=== PATIENT | female | born 2000 | race Two or more races ===

== ENCOUNTER 2023-08-26 04:39 | Inpatient (IN) | payer BC, OTHER ==
[~2023-08-26] VITALS: Ht 157.5 cm; Wt 65.8 kg
[2023-08-26] MEDS ORDERED: LACT. RINGERS/OXYTOCIN 20UNITS 1,000 ML IV ONE (05:23)
[2023-08-26] MEDS ORDERED: ACETAMINOPHEN 325 MG TAB PO PRN (06:15)
[2023-08-26] MEDS ORDERED: PHISODERM TOP SOLN 240ML BTL TOP PRN (06:15)
[2023-08-26] MEDS ORDERED: WITCH HAZEL-GLYCERIN PAD TOP PRN (06:15)
[2023-08-26] MEDS ORDERED: LACT. RINGERS/OXYTOCIN 20UNITS 500 ML IV ONE ×2 (06:15→06:45)
[2023-08-26] MEDS ORDERED: DERMOPLAST 60ML BOTTLE TOP PRN (06:15)
[2023-08-26 06:59] LABS: Urine Bacteria NONE SEEN /hpf (None Seen); Urine Blood Negative /uL (Negative); Urine Budding Yeast MODERATE /hpf (None Seen); Urine Clarity CLOUDY (Clear); Urine Color Yellow (Yellow); Urine Protein, UAD Negative (Negative); Urine Specific Gravity 1.019 (1.001-1.035); Urine Urobilinogen Normal (Negative); Urine WBC 9 /hpf (0 - 5); Urine WBC Clumps PRESENT /hpf (None Seen)
[2023-08-26 07:16] LABS: Basophils # (auto) 0 10 ^3/uL (0-0.2); Basophils % (auto) 0.1 % (0.0-2.0); Eosinophils # (auto) 0 10 ^3/uL (0-0.8); Eosinophils % (auto) 0.1 % (0.0-7.0); Hematocrit 36.8 % (36.0-46.0); Hemoglobin 12.2 g/dL (12.2-16.2); Lymphocytes # (auto) 1.1 10 ^3/uL (0.4-5.4); Mean Corpuscular Hemoglobin 30.7 pg (28.0-32.0); Mean Corpuscular Hgb Conc. 33.2 g/dL (32.0-36.0); Mean Corpuscular Volume 92.4 fL (80.0-100.0); Monocytes # (auto) 0.8 10 ^3/uL (0-1.3); Monocytes % (auto) 4.9 % (0.0-12.0); Neutrophils # (auto) 14.4 10 ^3/uL (1.6-8.6); Neutrophils % (auto) 87.9 % (37.0-80.0); Red Blood Cells 3.98 10^6/uL (4.0-5.20); Red Cell Distribution Width 12.6 % (11.8-14.3); White Blood Cell 16.4 10^3/uL (4.4-10.8)
[2023-08-26] MEDS ORDERED: LACTATED RINGER'S 1,000 ML IV SCH (07:30)
[2023-08-26 07:34] LABS: INR 0.89 (0.9-1.15); Prothrombin Time 9.4 sec (9.3-11.8)
[2023-08-26 08:22] LABS: Amphetamine Screen, Urine Neg (NEGATIVE)
[2023-08-26 08:23] LABS: Benzodiazephine Screen, Urine Neg (NEGATIVE)
[2023-08-26 08:24] LABS: Barbiturate Scree,Urine Neg (NEGATIVE); Cocaine Screen, Urine Neg (NEGATIVE); Opiate Scree,Urine Neg (NEGATIVE)
[2023-08-26 08:25] LABS: Cannabinoid Screen, Urine Neg (NEGATIVE); Phencyclidine Screen, Urine Neg (NEGATIVE)
[2023-08-26 08:49] LABS: Alanine Aminotransferase 15 U/L (7-40); Alkaline Phosphatase 76 U/L (46-116); Anion Gap 9 (5-15); BUN/Creatinine Ratio 15.6 (10.0-20.0); Blood Urea Nitrogen 7 mg/dL (9-23); Calcium 8.7 mg/dL (8.7-10.4); Carbon Dioxide 21 mmol/L (20-30); Chloride 106 mmol/L (98-107); Glucose 94 mg/dL (74-106); Potassium 3.7 mmol/L (3.5-5.1); Sodium 136 mmol/L (136-145)
[2023-08-26 08:50] LABS: Albumin 3.6 g/dL (3.2-4.8); Aspartate Aminotransferase 11 U/L (13-40); Bilirubin, Total 0.4 mg/dL (0.2-1.0); Total Protein 6.2 g/dL (5.7-8.2)
[2023-08-26 10:30] VITALS: BP_SYST 118; BP_SYST 120; BP_DIAS 68; BP_DIAS 72; PULSE 86; PULSE 93; RESP 18; TEMP 98.4; O2SAT 97
[2023-08-26 14:30] VITALS: BP 124/84; PULSE 82; RESP 18; TEMP 98.3; O2SAT 97
[2023-08-26 23:00] VITALS: BP 120/75; PULSE 86; RESP 16; TEMP 98; O2SAT 98
[2023-08-27 02:52] VITALS: BP 95/54; PULSE 78; RESP 16; TEMP 97.9; O2SAT 96
[2023-08-27 07:00] VITALS: BP 123/82; PULSE 92; RESP 17; TEMP 98.3; O2SAT 98
[2023-08-29 03:06] LABS: Rubella Antibodies, IgG 4.87 index (Immune >0.99)
[2023-08-29 05:06] LABS: RPR Non Reactive (Non Reactive)
[2023-08-29 19:06] LABS: Treponema pallidum Ab (FTA-Ab) Non Reactive (Non Reactive)
== END 2023-08-27 09:38 | disposition home or self-care (01) | DRG 805 ==
LOC: LDRP 04:39 → OBSVTOIN 04:40
PROVIDERS: ADMIT Obstetrics & Gynecology; ATTEND Obstetrics & Gynecology
PROC: 10E0XZZ Delivery of Products of Conception, External Approach (ICD-10-PCS; principal; 2023-08-26)
DX: O42.912 Preterm premature rupture of membranes, unspecified as to length of time between rupture and onset of labor, second trimester (principal); O60.12X0 Preterm labor second trimester with preterm delivery second trimester, not applicable or unspecified; Z37.0 Single live birth; Z3A.26 26 weeks gestation of pregnancy
CPT/HCPCS: 36415; 59025; 59409; 80053; 80307; 81001; 85025; 85610; 85730; 86592; 86703; 86762; 86850; 86900; 86901; 87340; 94760; 96360; 96365; 96366; G0378; J2590